=== PATIENT | female | born 1970 | race Caucasian/White ===

== ENCOUNTER → 2020-05-01 11:15 | Outpatient (CLI) | payer OTHER, SELFPAY ==
--- NOTE | ~2020-05-01 | DEXA_ITS ---
Bone Density Report Name: Nahomi Pena Age: 49 Sex: Female Ethnicity: White Date of : 1970 Indication: osteopenia; height loss; postmenopausal Referring Provider: Yeimi, Swathi Jane Study: Bone densitometry was performed. Exam Date: May 01, 2020 Accession number: [id number] Bone Density: Region BMD T-score Z-score Classification AP Spine (L1-L4) 0.932 -1.0 -0.2 Normal Femoral Neck (Left) 0.606 -2.2 -1.3 Osteopenia Total Hip (Left) 0.684 -2.1 -1.6 Osteopenia Femoral Neck (Right) 0.609 -2.2 -1.3 Osteopenia Total Hip (Right) 0.662 -2.3 -1.8 Osteopenia Total Hip Mean 0.673 -2.2 -1.7 Osteopenia World Health Organization criteria for BMD impression classify patients as: Normal (T-score at or above -1.0), Osteopenia (T-score between -1.0 and -2.5), or Osteoporosis (T-score at or below -2.5). 10-year Fracture Risk(1): Major Osteoporotic Fracture 6.5% Hip Fracture 0.9% Reported Risk Factors: [place] (), Neck BMD=0.609, BMI=25.7 (1) FRAX(R) Version 3.08. Fracture probability calculated for an untreated patient. Fracture probability may be lower if the patient has received treatment. Previous Exams: Region Exam Age BMD T-score BMD Change BMD Change Date g/cm2 vs Baseline vs Previous AP Spine(L1-L4) 05/01/2020 49 0.932 -1.0 -0.020 0.019 10/06/2017 47 0.913 -1.2 -0.039* -0.017 03/03/2014 43 0.929 -1.1 -0.022 0.001 12/20/2011 41 0.928 -1.1 -0.023* -0.023* 11/20/2009 39 0.952 -0.9 Total Hip(Left) 05/01/2020 49 0.684 -2.1 -0.030* 0.017 10/06/2017 47 0.668 -2.2 -0.046* -0.034* 03/03/2014 43 0.702 -2.0 -0.013 -0.030* 12/20/2011 41 0.732 -1.7 0.018 0.018 11/20/2009 39 0.714 -1.9 Total Hip(Right) 05/01/2020 49 0.662 -2.3 -0.036* -0.002 10/06/2017 47 0.664 -2.3 -0.034* -0.031* 03/03/2014 43 0.695 -2.0 -0.003 -0.014 12/20/2011 41 0.709 -1.9 0.011 0.011 11/20/2009 39 0.698 -2.0 *Denotes significance at 95% confidence level, LSC for AP Spine = 0.022 g/cm2, LSC for Total Hip = 0.027 g/cm2 Clinical Information Provided by Patient: Has used the following medications: Vitamin D, Calcium Patient maximum height was 67 Menopause Age: 44 No regular weight bearing exercise Drinks caffeinated beverages Onset of menses at age
== END ==
PROVIDERS: PCP Family Medicine Adolescent Medicine; Visit Provider Physician Assistant
DX: Z78.0 Asymptomatic menopausal state (principal); M85.89 Other specified disorders of bone density and structure, multiple sites
CPT/HCPCS: 77080

== ENCOUNTER → 2020-06-09 07:31 | Outpatient (CLI) | payer OTHER, SELFPAY ==
--- NOTE | ~2020-06-09 | MM_ITS ---
EXAMINATION: MM screening [facility] BI w bran HISTORY: Screening mammogram TECHNIQUE: Craniocaudal and mediolateral oblique 3-D tomosynthesis images were obtained and synthetic 2-D images were generated. CAD analysis was submitted and interpreted. COMPARISON: 11/10/2017, 09/27/1917, 03/03/2014 BREAST PARENCHYMAL COMPOSITION: The breasts are heterogeneously dense, which may obscure small masses . FINDINGS: The previously described left breast cyst has decreased in size. There is no evidence of chavis spicious mass, calcification, or architectural distortion to suggest malignancy in either breast. The re has been no suspicious interval change. IMPRESSION: 1. No mammographic evidence of malignancy. 2. Recommend routine screening mammography in one year. BI-RADS Category 2: Benign finding(s). Reviewed, dictated and finalized at location A.
== END ==
PROVIDERS: PCP Family Medicine Adolescent Medicine; Visit Provider Physician Assistant
DX: Z12.31 Encounter for screening mammogram for malignant neoplasm of breast (principal)
CPT/HCPCS: 77063; 77067